=== PATIENT | male | born 1960 | race Caucasian/White ===

== ENCOUNTER 2018-08-19 09:51 | Emergency (ER) | payer OTHER ==
[~2018-08-19] VITALS: Ht 182.9 cm; Wt 130.0 kg
[~2018-08-19 09:51] MED LIST: AMLO10TA8 PO; BENA20TA54 PO; ENAL20TA PO; HYDR-3240 PO; IBUP-1222 PO; METH4TAB2 PO; METH750T87 PO; OXYC-302 PO
--- NOTE | 2018-08-19 10:10 | NUR ---
Assumed care of patient. C/O LBP and left hip pain x 2 weeks. Denies trauma. Hx of lumbar surgery. Taking tylenol, ibuprofen, and robaxin at home. at bedside. Will continue to monitor.
[2018-08-19] MEDS ORDERED: methylPREDNISolone SOD SUCC 125 MG/2 ML ONE (10:24)
[2018-08-19] MEDS ORDERED: KETOROLAC 30 MG/1 ML ONE (10:24)
[2018-08-19 10:29] VITALS: BP 162/93
[2018-08-19] MEDS ORDERED: SODIUM CHLORIDE FLUSH 10ML SYR IVF ONE (10:30)
[2018-08-19] MEDS ORDERED: KETOROLAC 30 MG/1 ML IVPush ONE (10:30)
[2018-08-19] MEDS ORDERED: methylPREDNISolone SOD SUCC 125 MG/2 ML IVPush ONE (10:30)
[2018-08-19] MEDS ORDERED: DIAZEPAM 5 MG/ML, 2ML IVPush ONE (10:30)
[2018-08-19] MEDS ORDERED: GADOBUTROL 10 MMOL/10 ML PFS ONE (11:33)
== END 2018-08-19 12:30 | disposition home or self-care (01) ==
LOC: ED 10:43
DX: M54.16 Radiculopathy, lumbar region (principal); I10 Essential (primary) hypertension; E78.5 Hyperlipidemia, unspecified
CPT/HCPCS: 72158; 96374; 96375; 99284; A9585; J1885; J2930; J3360

== ENCOUNTER → 2019-10-08 | Outpatient (CLI) | payer OTHER | END | disposition home or self-care (01) | LOC: CARD 08:38 | PROVIDERS: ATTEND Family Medicine | DX: I49.3 Ventricular premature depolarization (principal); E78.2 Mixed hyperlipidemia; I10 Essential (primary) hypertension; G47.62 Sleep related leg cramps; G25.81 Restless legs syndrome; Z68.41 Body mass index [BMI] 40.0-44.9, adult | CPT/HCPCS: 93017; 93350 ==